=== PATIENT | male | born 1985 | race Caucasian/White ===

== ENCOUNTER 2017-11-24 14:26 | Emergency (ER) | payer OTHER, SELFPAY ==
[2017-11-24 14:26] VITALS: BP 149/74; PULSE 107; RESP 14; TEMP 37; O2SAT 97; BMI 27.8
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
[2017-11-24 16:19] VITALS: BP 118/79; PULSE 67; RESP 18; O2SAT 99
== END 2017-11-24 16:20 | disposition home or self-care (01) ==
PROVIDERS: Emergency Provider Emergency Medicine; Family Provider Family Medicine
DX: S06.0X0A Concussion without loss of consciousness, initial encounter (principal); S01.21XA Laceration without foreign body of nose, initial encounter; S50.811A Abrasion of right forearm, initial encounter; V28.3XXA Person boarding or alighting a motorcycle injured in noncollision transport accident, initial encounter; Y93.39 Activity, other involving climbing, rappelling and jumping off; Y92.410 Unspecified street and highway as the place of occurrence of the external cause
CPT/HCPCS: 12011; 70450; 99283